=== PATIENT | female | born 1955 | race Caucasian/White ===

== ENCOUNTER 2023-11-20 22:55 | Emergency (ER) | payer MEDICARE, OTHER, SELFPAY ==
[2023-11-20 23:01] VITALS: BP 118/70
[2023-11-21 00:10] VITALS: BP 125/72
[2023-11-21] MEDS: DECADRON 10 MG IV (00:15)
[2023-11-21] MEDS: VAPONEFRIN NEBS 0.5 ML INH (00:15)
[2023-11-21] MEDS: NSS 1000 IV (00:16)
--- NOTE | 2023-11-21 00:21 | ED.GENMED ---
History of Present Illness
General
Chief Complaint: Throat Problem
Source: patient and family
Exam Limitations: none
Time Seen by Provider: 11/20/23 23:25
Nursing documentation reviewed up to this point in time: agreed with
Travel History
Have you had any contact with someone who has COVID-19?: No
Do you have any symptoms of coronavirus? Fever > 100 degrees, chills, cough, shortness of breath, sore throat, loss of taste or smell, muscle aches, or headache?: No
History of Present Illness
History of Present Illness:
68-year-old female presents with hoarseness, laryngitis type symptoms swollen glands left ear pain symptoms started a day or so ago possibly after choking on a small M&M, no fevers, mild coughing, no sick contacts, has history of MS, does not recall
ever getting any sort of symptoms with MS, she accompanied by her spouse, no fever or chills, no chest pains
Past History
Past History
ED Past Medical History: HTN and Other (Multiple sclerosis, chronic back pain and right sciatica)
ED Past Surgical History: Bowel resection (Sigmoidectomy), Gynecological (hysterectomy), Orthopedic (left shoulder surgery, foot surgery) and Other (Parathyroid removal)
Social History
Tobacco: Non-smoker
Alcohol: None
Drug: None
Personal:
Living: with family
Employment: Employed
Family History
Family History: Other (Noncontributory)
Review of Systems
Review of Systems
All Other Systems: Not applicable
Constitutional: Denies fever or fatigue
EENT: Reports other (Sore throat hoarseness earache swollen glands)
Respiratory: Reports cough; Denies trouble breathing
Cardiac: Reports no symptoms
ABD/GI: Reports no symptoms
: Reports no symptoms
Musculoskeletal: Reports no symptoms
Skin: Reports no symptoms
Neurological: Reports no symptoms
Endocrine: Reports no symptoms
Hematologic/Lymphatic: Reports no symptoms
Phy Exam
Physical Exam
Physical Exam:
Physical Exam
General: 68-year-old female hoarse voice
Neck: Posterior pharynx is red no drooling no exudates no trismus, fluid behind the left ear
Heart: s1/s2 regular rate and rhythm, no murmur. equal radial pulses.
Lungs: no acute respiratory distress. Upper airway sounds transmitted
Neuro: alert and oriented. no focal neurological deficits
Skin: no rash
Psychiatric: well kept. interactive and cooperative
Extremities: no edema.
Course
Orders/Labs/Results
Orders:
Orders
11/20/23 23:49
0.9% Sodium Chloride 1000 ml [Nss] 1,000 ml IV BOLUS
Dexamethasone Sod Phosphate [Decadron] 10 mg IV NOW STA
Racepinephrine [Vaponefrin Nebs] 0.5 ml INH R NOW STA
11/21/23 00:01
CR Soft Tissue Neck Urgent
Reason For Exam: swallowed MnM
11/21/23 01:26
Amoxicillin [Amoxil] 500 mg PO NOW STA
Vital Signs
Initial and Last Documented VS:
Initial Vital Signs
Temp Pulse Resp BP Pulse Ox
98.9 F 78 18 118/70 94
11/20/23 23:01 11/20/23 23:01 11/20/23 23:01 11/20/23 23:01 11/20/23 23:01
Last Documented Vital Signs
Temp Pulse Resp BP Pulse Ox
98.9 F 78 18 118/70 94
11/20/23 23:01 11/20/23 23:01 11/20/23 23:01 11/20/23 23:01 11/20/23 23:01
MDM/Problems Addressed
Differential Diagnosis Includes:
Laryngitis otitis media pharyngitis viral syndrome
MDM/Problems Addressed:
Hoarseness, earache
Chronic conditions affecting care:
MS
Acute Exacerbation and/or Progression of Chronic Illness:
MS
*Critical Care Note
Total Time (30-74mins, 75-104mins- exclusive of procedures): Not Applicable
Update Note
Update Note:
Update will treat with fluids steroids racemic check soft tissue neck, consideration for antibiotics though may all be viral
1:27 AM patient feeling better will discharge with Medrol and Amoxil
ED Attending Note
-
Portions of this chart may have been created with voice recognition software.� Occasional wrong word or��sound alike� substitutions may have occurred due to the inherent limitations of voice recognition software.
Discharge Plan
Departure
Patient Disposition: Home (Routine Discharge)
Date of Disposition: 11/21/23
Time of Disposition: 01:27
Patient with high blood pressure during this ER visit?: No
Condition: Good
Covid-19: Not Applicable
Discharge Problem:
Laryngitis, Otitis media
Instructions: Ear Infection ED, Laryngitis ED
Prescriptions:
New
amoxicillin 500 mg capsule
500 mg PO Q8H Qty: 30 0RF
methylprednisolone [Medrol (Ezekiel)] 4 mg tablets,dose pack
See Rx Instructions .ROUTE .COMPLEX Qty: 21 0RF
Rx Instructions:
orally per package directions
No Action
diazepam 5 MG tablet
5 mg PO BIDPRN PRN (Reason: muscle pain)
Rx Instructions:
06/28/2023, patient filled this medication on 05/30/2023 for 60 tablets according to PDMP.
amlodipine 5 MG tablet
5 mg PO DAILY Qty: 0 0RF
oxycodone-acetaminophen 10-325 mg Tablet
1 tab PO Q4H PRN (Reason: mild pain)
Rx Instructions:
06/28/2023, patient filled this medication on 06/17/2023 for 120 tablets according to PDMP.
omeprazole 20 mg Capsule,Delayed Release(Dr/Ec)
20 mg PO DAILY
paroxetine HCl 40 mg Tablet
40 mg PO HS
melatonin 5 mg Tablet,Chewable
10 mg PO HS
Vulmerity
2 cap PO BID
Rx Instructions:
06/28/2023, patient states that they take two [address] capsules BID, reconciled with patient and ECW. ECW shows that they take 412 mg. No pharmacy records indicating they fill this medication.
morphine 30 MG tablet extended release
30 mg PO BID
Rx Instructions:
06/28/2023, patient filled this medication on 06/17/2023 for 90 tablets according to PDMP.
ascorbic acid (vitamin C) 500 mg Tablet
2,000 mg PO HS
biotin 1,000 mcg Tablet,Chewable
2,000 mcg PO DAILY
Referrals:
Seb Alvarenga MD [Family Provider] -
Interventions
Interventions:
*Risk Screen - Suicide Last Done: 11/20/23 23:01
*General Assessment Last Done: 11/20/23 23:33
*Neglect/Abuse Screening Last Done: 11/20/23 23:01
ED- Cardiac Assessment Last Done: 11/20/23 23:33
ED-EENT Assessment Last Done: 11/20/23 23:33
ED- Pulmonary Assessment Last Done: 11/20/23 23:33
[2023-11-21] MEDS: AMOXIL 500 MG PO (02:06)
[2023-11-21 02:11] VITALS: BP 128/72
== END 2023-11-21 02:13 | disposition home or self-care (01) ==
LOC: EMR 22:55
PROVIDERS: EMERGENCY PHYSICIAN Emergency Medicine; FAMILY PHYSICIAN Family Medicine
DX: H66.90 Otitis media, unspecified, unspecified ear (principal); J04.0 Acute laryngitis; R49.0 Dysphonia; I10 Essential (primary) hypertension; G35 Multiple sclerosis; G89.29 Other chronic pain; Z90.49 Acquired absence of other specified parts of digestive tract; Z90.710 Acquired absence of both cervix and uterus
CPT/HCPCS: 99283; 94640; 96374; 96361; 70360

== ENCOUNTER → 2023-12-26 13:30 | Outpatient (REF) | payer MEDICARE, OTHER, SELFPAY | LOC: MRI 3T 13:30 | PROVIDERS: ATTENDING PHYSICIAN Specialist; FAMILY PHYSICIAN Family Medicine; REFERRING PHYSICIAN Pain Medicine Interventional Pain Medicine | DX: G35 Multiple sclerosis (principal) | CPT/HCPCS: 70553; 72156; A9575 ==

== ENCOUNTER → 2023-12-30 12:53 | Outpatient (REF) | payer MEDICARE, OTHER, SELFPAY | LOC: RAD 12:53 | PROVIDERS: ATTENDING PHYSICIAN Nurse Practitioner Family; FAMILY PHYSICIAN Family Medicine | DX: R05.8 Other specified cough (principal) | CPT/HCPCS: 71046 ==

== ENCOUNTER → 2024-01-05 08:19 | Outpatient (REF) | payer MEDICARE, OTHER, SELFPAY ==
[2024-01-05 08:57] LABS: % Basophils 0.4 % (0-2); % Eosinophils 5.2 % (0-6); % Immature Granulocytes 0.4 % (0-0.5); % Lymphocytes 26.4 % (20.5-51.1); % Monocytes 12.4 % (1.7-9.3); % Neutrophils 55.2 % (42.2-75.2); Absolute Eosinophils 0.3 10^3/uL (0-0.7); Absolute Lymphocytes 1.5 10^3/uL (1.2-3.4); Absolute Monocytes 0.7 10^3/uL (0.1-0.6); Absolute Neutrophils 3.1 10^3/uL (1.4-6.5); Hematocrit 36.1 % (37.0-47.0); Hemoglobin 12.2 g/dL (12.0-16.0); Mean Corp Hgb Conc. 33.8 g/dL (33.0-37.0); Mean Corpuscular Hgb 28.4 pg (27.0-31.0); Mean Corpuscular Volume 84.1 fL (81.0-99.0); Mean Platelet Volume 10.8 fL (7.4-10.4); Nucleated Red Blood Cells % 0 %; Platelet Count 252 10^3/uL (130-400); Red Blood Cell Count 4.29 10^6/uL (4.20-5.40); Red Cell Dist. Width 13.4 % (11.5-14.5); White Blood Cell Count 5.6 10^3/uL (4.8-10.8)
[2024-01-05 09:36] LABS: ALT (SGPT) 30 U/L (0-35); AST (SGOT) 44 U/L (14-36); Alkaline Phosphatase 72 U/L (38-126); Blood Urea Nitrogen 12 mg/dl (7-17); Calcium 10.1 mg/dl (8.4-10.2); Carbon Dioxide 29 mmol/L (22-30); Chloride 104 mmol/L (98-107); Glucose 89 mg/dl (70-99); HDL Cholesterol 92 mg/dl; LDL Cholesterol, Calculated 107 mg/dl; Potassium 4.4 mmol/L (3.5-5.1); Sodium 137 mmol/L (135-145); Total Bilirubin 0.7 mg/dl (0.2-1.3); Total Cholesterol 206 mg/dl (50-199); Total Protein 6.6 g/dl (6.3-8.2); Triglyceride 38 mg/dl (10-149); Very Low Density Lipoprotein 7 mg/dl (0-30); eGFR > 60.00
[2024-01-05 10:22] LABS: TSH 3.12 uIU/ml (0.47-4.68)
[2024-01-05 11:52] LABS: Glycohemoglobin (HgbA1c) 5.8 % (4.0-5.6)
== END ==
LOC: REG 08:19
PROVIDERS: ATTENDING PHYSICIAN Family Medicine
DX: G35 Multiple sclerosis (principal); E78.2 Mixed hyperlipidemia; M81.0 Age-related osteoporosis without current pathological fracture; R73.9 Hyperglycemia, unspecified
CPT/HCPCS: 36415; 80053; 80061; 83036; 84443; 85025

== ENCOUNTER → 2024-02-10 13:54 | Outpatient (REF) | payer MEDICARE, OTHER, SELFPAY | LOC: WDC 13:54 | PROVIDERS: ATTENDING PHYSICIAN Family Medicine | DX: Z12.31 Encounter for screening mammogram for malignant neoplasm of breast (principal); R22.2 Localized swelling, mass and lump, trunk; M54.2 Cervicalgia | CPT/HCPCS: 71250; 72125; 77063; 77067 ==

== ENCOUNTER 2024-04-10 03:59 | Emergency (ER) | payer MEDICARE, OTHER, SELFPAY ==
[2024-04-10 04:04] VITALS: BP 143/79
[2024-04-10 04:06] VITALS: BP 143/79; BMI 26.6
[2024-04-10 04:42] LABS: % Basophils 0.4 % (0-2); % Immature Granulocytes 0.3 % (0-0.5); % Lymphocytes 11.5 % (20.5-51.1); % Monocytes 1.6 % (1.7-9.3); % Neutrophils 86.2 % (42.2-75.2); Absolute Lymphocytes 0.8 10^3/uL (1.2-3.4); Absolute Monocytes 0.1 10^3/uL (0.1-0.6); Absolute Neutrophils 6.1 10^3/uL (1.4-6.5); Hematocrit 44.5 % (37.0-47.0); Hemoglobin 15.1 g/dL (12.0-16.0); Mean Corp Hgb Conc. 33.9 g/dL (33.0-37.0); Mean Corpuscular Hgb 27.6 pg (27.0-31.0); Mean Corpuscular Volume 81.2 fL (81.0-99.0); Mean Platelet Volume 11.3 fL (7.4-10.4); Nucleated Red Blood Cells % 0 %; Platelet Count 371 10^3/uL (130-400); Red Blood Cell Count 5.48 10^6/uL (4.20-5.40); Red Cell Dist. Width 14.5 % (11.5-14.5)
[2024-04-10] MEDS: ZOFRAN 4 MG IV (04:57)
[2024-04-10] MEDS: NSS 1000 IV (04:57)
[2024-04-10 05:03] VITALS: BP 177/82
--- NOTE | 2024-04-10 05:05 | ED.GENMED ---
History of Present Illness
<JOCELYNN Sarabia - Last Filed: 04/10/24 05:27>
General
Chief Complaint: Abdominal Symptoms
Time Seen by Provider: 04/10/24 04:51
Travel History
Have you had any contact with someone who has COVID-19?: No
Do you have any symptoms of coronavirus? Fever > 100 degrees, chills, cough, shortness of breath, sore throat, loss of taste or smell, muscle aches, or headache?: No
History of Present Illness
History of Present Illness:
68 year old female with hx of MS, chronic pain on narcotics, and indigestion who presents with multiple episodes of vomiting since 1800 yesterday. Pt states she has been feeling 'queasy' for several days. This past Tuesday pt went to [facility]
with family and was out in the sun all day and ate foods with gluten which she normally does not eat due indigestion. Yesterday, pt went to a family member's graduation and was also out in the sun. She states she has been more active than usual
these past 2 days and feels like she overdid herself. At 1800 yesterday she began vomiting and continue every 20 minutes until arrival. States she has had chronic mild lower abdominal discomfort after her abdominal surgery last year, which worsened
yesterday. Reports SOB and chest pain secondary to retching. Currently she also reports whole body pain. States she vomited up her MS medications including her pain medications. Denies fevers/chills, diarrhea, constipation.
Past History
<JOCELYNN Sarabia - Last Filed: 04/10/24 05:27>
Past History
ED Past Medical History: HTN and Other (Multiple sclerosis, chronic back pain and right sciatica)
ED Past Surgical History: Bowel resection (Sigmoidectomy), Gynecological (hysterectomy), Orthopedic (left shoulder surgery, foot surgery) and Other (Parathyroid removal)
Social History
Tobacco: Non-smoker
Alcohol: None
Drug: None
Personal:
Living: with family
Employment: Employed
Family History
Family History: Other (Noncontributory)
Review of Systems
<JOCELYNN Sarabia - Last Filed: 04/10/24 05:27>
Review of Systems
Allergies reviewed?: Yes
All Other Systems: ROS reviewed and negative except as documented in HPI and ROS
Constitutional: Reports fatigue
EENT: Reports no symptoms
Respiratory: Reports trouble breathing
Cardiac: Reports chest pain
ABD/GI: Reports abdominal pain, nausea and vomiting
: Reports no symptoms
Musculoskeletal: Reports joint pain and muscle pain
Skin: Reports no symptoms
Neurological: Reports no symptoms
Endocrine: Reports no symptoms
Hematologic/Lymphatic: Reports no symptoms
Psychiatric: Reports no symptoms
Phy Exam
<JOCELYNN Sarabia - Last Filed: 04/10/24 05:27>
General Physical Exam
General Presentation: moderate distress
General age: appears stated age
General Skin: warm and dry
General Habitus: normal
General Mental: alert
General Hydration: dry mucous membranes
Cardiovascular Exam
Cardiovascular Exam: regular rate/rhythm, no edema, no gallop, no murmur and normal peripheral pulses
Pulmonary Exam
Pulmonary Exam: lungs clear, no respiratory distress, no rales, no crackles, no rhonchi, no wheezing and no cough
Gastrointestinal Exam
Gastrointestinal Exam: normal bowel sounds, soft, no pulsatile mass and non distended
Palpation: left lower quadrant: Moderate tenderness and right lower quadrant: Moderate tenderness
Skin Exam
Skin Exam: normal color and warm/dry
Psychiatric Exam
Psychiatric Exam: normal mood/affect
Course
<JOCELYNN Sarabia - [facility] Filed: 04/10/24 05:27>
Orders/Labs/Results
Orders:
Orders
04/10/24 04:04
Electrocardiogram (*1) Urgent
Reason for Study: Fatigue / Weakness
04/10/24 04:05
EKG- Treatment ONCE
04/10/24 04:24
IV Insert/Care/Rem.- Treatment PRN
Straight cath- Treatment ONCE
04/10/24 04:32
Complete Blood Count/With Diff Urgent
Comprehensive Metabolic Panel Urgent
Lipase Urgent
04/10/24 04:44
0.9% Sodium Chloride 1000 ml [Nss] 1,000 ml IV BOLUS
Ondansetron Injectable [Zofran] 4 mg IV NOW STA
04/10/24 05:23
HYDROmorphone [Dilaudid] 1 mg IV NOW STA
04/10/24 05:31
CT Abd/pelvis W Iv Cont Urgent
Comment:
Reason For Exam: gen lower abd pain, N/V
04/10/24 05:47
Urinalysis Reflex To Culture Urgent
Date Specimen was Collected: 04/10/24
Time Specimen was Collected: 04:24
Urine Microscopic Reflex Cult Urgent
04/10/24 06:44
Oxycodone [Roxicodone] 10 mg PO NOW STA
Abnormal Lab Results
04/10/24 04/10/24
04:32 05:47
RBC 5.48 H 10^6/uL
(4.20-5.40)
MPV 11.3 H fL
(7.4-10.4)
Absolute Lymphs (auto) 0.8 L 10^3/uL
(1.2-3.4)
Neutrophils % 86.2 H %
(42.2-75.2)
Lymphocytes % 11.5 L %
(20.5-51.1)
Monocytes % 1.6 L %
(1.7-9.3)
Glucose 144 H mg/dl
(70-99)
Calcium 10.5 H mg/dl
(8.4-10.2)
AST 38 H U/L
(14-36)
Total Protein 8.4 H g/dl
(6.3-8.2)
Albumin 5.2 H g/dl
(3.5-5.0)
Urine Ketones 3+ A
(Negative)
Ur Occult Blood Reflex 1+ A
(Negative)
Urine Bilirubin 1+ A
(Negative)
Leukocyte Esterase Rfl Trace A
(Negative)
Urine Albumin (Reflex) 1+ A
(Neg - Trace)
04/10/24 04:32
04/10/24 04:32
Vital Signs
Initial and Last Documented VS:
Initial Vital Signs
BP
143/79
04/10/24 04:04
Last Documented Vital Signs
Temp Pulse Resp BP Pulse Ox
99.0 F 82 24 155/80 96
04/10/24 04:06 04/10/24 06:30 04/10/24 06:15 04/10/24 06:00 04/10/24 06:30
<Yuki Mchugh, DO - Last Filed: 04/10/24 06:52>
Orders/Labs/Results
Orders:
Orders
04/10/24 04:04
Electrocardiogram (*1) Urgent
Reason for Study: Fatigue / Weakness
04/10/24 04:05
EKG- Treatment ONCE
04/10/24 04:24
IV Insert/Care/Rem.- Treatment PRN
Straight cath- Treatment ONCE
04/10/24 04:32
Complete Blood Count/With Diff Urgent
Comprehensive Metabolic Panel Urgent
Lipase Urgent
04/10/24 04:44
0.9% Sodium Chloride 1000 ml [Nss] 1,000 ml IV BOLUS
Ondansetron Injectable [Zofran] 4 mg IV NOW STA
04/10/24 05:23
HYDROmorphone [Dilaudid] 1 mg IV NOW STA
04/10/24 05:31
CT Abd/pelvis W Iv Cont Urgent
Comment:
Reason For Exam: gen lower abd pain, N/V
04/10/24 05:47
Urinalysis Reflex To Culture Urgent
Date Specimen was Collected: 04/10/24
Time Specimen was Collected: 04:24
Urine Microscopic Reflex Cult Urgent
04/10/24 06:44
Oxycodone [Roxicodone] 10 mg PO NOW STA
Abnormal Lab Results
04/10/24 04/10/24
04:32 05:47
RBC 5.48 H 10^6/uL
(4.20-5.40)
MPV 11.3 H fL
(7.4-10.4)
Absolute Lymphs (auto) 0.8 L 10^3/uL
(1.2-3.4)
Neutrophils % 86.2 H %
(42.2-75.2)
Lymphocytes % 11.5 L %
(20.5-51.1)
Monocytes % 1.6 L %
(1.7-9.3)
Glucose 144 H mg/dl
(70-99)
Calcium 10.5 H mg/dl
(8.4-10.2)
AST 38 H U/L
(14-36)
Total Protein 8.4 H g/dl
(6.3-8.2)
Albumin 5.2 H g/dl
(3.5-5.0)
Urine Ketones 3+ A
(Negative)
Ur Occult Blood Reflex 1+ A
(Negative)
Urine Bilirubin 1+ A
(Negative)
Leukocyte Esterase Rfl Trace A
(Negative)
Urine Albumin (Reflex) 1+ A
(Neg - Trace)
04/10/24 04:32
04/10/24 04:32
Vital Signs
Initial and Last Documented VS:
Initial Vital Signs
BP
143/79
04/10/24 04:04
Last Documented Vital Signs
Temp Pulse Resp BP Pulse Ox
99.0 F 82 24 155/80 96
04/10/24 04:06 04/10/24 06:30 04/10/24 06:15 04/10/24 06:00 04/10/24 06:30
<JOCELYNN Sarabia - Last Filed: 04/10/24 05:27>
MDM/Problems Addressed
Differential Diagnosis Includes:
cyclic vomiting secondary to MS flare up, SBO, foodborne illness
MDM/Problems Addressed:
68 year old female who presents with nausea and multiple episodes of vomiting since 1800 yesterday.
Chronic conditions affecting care: HTN, Previous abdomnial surgery, Psychiatric illness (anxiety) and Other (multiple sclerosis)
<JOCELYNN Sarabia - Last Filed: 04/10/24 05:27>
*Critical Care Note
Total Time (30-74mins, 75-104mins- exclusive of procedures): Not Applicable
<Yuki Mchugh DO - Last Filed: 04/10/24 06:52>
*Radiology
Radiology exam reviewed: radiology read reviewed
*Pulse Oximetry
Patient hypoxic: no
*EKG
Interpreted by ED Provider?: Yes
Interpretation: normal
Comparison EKG: no changes (Unchanged from previous May 2023)
Rate: normal
Rhythm: sinus
Henderson: normal axis
Interval: normal interval
QRS Pattern: normal QRS
Ischemia: no ischemia
*Manager Emergency Interpretation
Rate: normal
Interpretation: normal
Rhythm: sinus
ED Attending Note
<JOCELYNN Sarabia - Last Filed: 04/10/24 05:27>
-
Portions of this chart may have been created with voice recognition software.� Occasional wrong word or��sound alike� substitutions may have occurred due to the inherent limitations of voice recognition software.
<Yuki Mchugh DO - Last Filed: 04/10/24 06:52>
ED Attending Note
Patient seen and examined by attending physician: Yes
I performed the substantive portion of visit, reviewed & personally made and approve the management plan that is documented in note by myself or LUIS.: Yes
I performed a history and physical exam of patient and discussed management with resident, I reviewed resident's note and agree with documented findings and plan of care.: Yes
ED Attending Note:
This is a 68-year-old woman who has history of MS as well as history of cervical and thoracic DJD, chronic back pain, chronically narcotic dependent.
She admits to moderate physical activity over the past several days visiting [facility] over the weekend as well as attending a graduation yesterday. She also admits to moderate dietary indiscretion over the past several days.
She presents with complaints of nausea and vomiting that began yesterday evening around 6 PM with recurrent episodes of nonbloody vomitus and has been unable to to take her oral narcotic pain medications which include MS Contin 30 mg 3 times daily
and Oxy IR 10 mg 4 times daily.
She does admit to somewhat chronic lower abdominal discomfort that is persistent per sepsis mildly increased since yesterday evening. She denies diarrhea nor constipation. No dysuria nor urgency nor hematuria. She denies back pain or flank pain.
She denies fever but has had some intermittent chills.
No known close contacts with similar symptoms. No recent antibiotics nor recent travel.
She does have history of previous abdominal surgeries including sigmoidectomy 2009, hysterectomy 1998 and she underwent abdominal wall hernia repair January 2023.
Previous hospitalization 2020 for abdominal hernia with obstruction.
GENERAL: 68-year-old woman appears her stated age, awake and alert, overall appears in no acute distress. is accompanying.
EYE: anicteric
NECK: Supple, nontender, no meningismus, no significant adenopathy.
ENT: oral mucosa is moist. No rhinorrhea.
CARDIAC: Regular rate and rhythm. no murmur.
LUNGS: Clear breath sounds bilaterally, no acute respiratory distress, no wheezes/rales/rhonchi
ABDOMEN: Soft, nondistended, without appreciable tenderness, no palpable masses, no r/g, no cvat. normoactive BS.
NEUROLOGICAL: Alert and oriented x3, no focal neuro deficits.
SKIN: Warm and dry, normal color, skin intact. No rash.
MUSCULOSKELETAL: No C/C/E. peripheral pulses are full and equal b/l. No palpable tenderness.
PSYCH: Normal and appropriate interaction.
Concern for acute gastroenteritis, distal small bowel obstruction, ileus. This patient reports inability to tolerate her oral narcotic pain medication there is some concern for mild opioid withdrawal syndrome exacerbating nausea and vomiting.
She is afebrile, hemodynamically stable and clinically appears euvolemic. There is some concern for electrolyte abnormality, acute kidney injury/dehydration related to vomiting.
Labs are pending.
Will medicate for pain and nausea initiate IV fluids.
Due to multiple previous abdominal surgeries, intractable vomiting we will plan for CT abdomen pelvis.
04/10/2024 0644 AM
Patient continues to be comfortable. She has had no episodes of vomiting since arrival to the ED.
Abdomen is soft without appreciable tenderness.
Tolerating ice chips.
Labs are unremarkable, reassuring.
CAT scan shows constipation without bowel obstruction. Gastric wall thickening suggestive of gastritis. Patient admits to some chronic abdominal issues, chronically maintained on omeprazole and has been following with GI. She continues with some
generalized aches, pains which I suspect is her chronic pain issues and will give an oral dose of oxycodone, her usual dose and if tolerated we will plan for discharge to home with recommendations to limit her diet to clear liquids today, slowly
advance to soft bland foods as tolerated.
Will prescribe Zofran ODT for as needed nausea.
Recommend she continue her usual pain medications as prescribed.
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
Discharge Plan
Departure
Patient Disposition: Home (Routine Discharge)
Date of Disposition: 04/10/24
Time of Disposition: 06:47
Patient with high blood pressure during this ER visit?: No
Condition: Good
Discharge Problem:
Acute gastroenteritis
Instructions: Clear Liquid Diet
Prescriptions:
New
ondansetron 4 mg tablet,disintegrating
4 mg PO QID PRN (Reason: nausea and vomiting) Qty: 20 0RF
No Action
diazepam 5 MG tablet
5 mg PO BIDPRN PRN (Reason: muscle pain)
Rx Instructions:
06/28/2023, patient filled this medication on 05/30/2023 for 60 tablets according to PDMP.
amlodipine 5 MG tablet
5 mg PO DAILY Qty: 0 0RF
omeprazole 20 mg Capsule,Delayed Release(Dr/Ec)
40 mg PO DAILY
paroxetine HCl 40 mg Tablet
40 mg PO HS
melatonin 5 mg Tablet,Chewable
10 mg PO HS
Vulmerity
2 cap PO BID
Rx Instructions:
06/28/2023, patient states that they take two [address] capsules BID, reconciled with patient and ECW. ECW shows that they take 412 mg. No pharmacy records indicating they fill this medication.
morphine 30 MG tablet extended release
30 mg PO TID
Rx Instructions:
06/28/2023, patient filled this medication on 06/17/2023 for 90 tablets according to PDMP.
Referrals:
Seb Alvarenga MD [Family Provider] - Call in 1-3 days for appt
Activity Restrictions/Additional Instructions:
Limit your diet to clear liquids today, slowly advancing to soft bland foods tomorrow.
A prescription for orally dissolving Zofran has been sent to your pharmacy for as needed nausea.
Continue your current medications as prescribed.
Follow-up with your primary care physician as well as passenger barge master for recheck.
Interventions
Interventions:
*Risk Screen - Suicide Last Done: 04/10/24 04:22
*General Assessment Last Done: 04/10/24 04:06
*Neglect/Abuse Screening Last Done: 04/10/24 04:06
*ED COVID-19 Vaccine History Last Done: 04/10/24 04:22
GE-Vqiqyg-Nyunizplrh Assessment Last Done: 04/10/24 04:23
Discharge Date and Time
Print Language: YI
[2024-04-10 05:07] LABS: ALT (SGPT) 31 U/L (0-35); AST (SGOT) 38 U/L (14-36); Albumin 5.2 g/dl (3.5-5.0); Alkaline Phosphatase 95 U/L (38-126); Blood Urea Nitrogen 13 mg/dl (7-17); Calcium 10.5 mg/dl (8.4-10.2); Carbon Dioxide 28 mmol/L (22-30); Chloride 104 mmol/L (98-107); Estimated Creatinine Clearance 72 ml/min; Glucose 144 mg/dl (70-99); Lipase 64 U/L (23-300); Potassium 4.5 mmol/L (3.5-5.1); Sodium 144 mmol/L (135-145); Total Protein 8.4 g/dl (6.3-8.2); eGFR > 60.00
[2024-04-10] MEDS: DILAUDID 1 MG IV (05:31)
[2024-04-10 06:00] VITALS: BP 155/80
[2024-04-10 06:29] LABS: Urine Albumin 1+ (Neg - Trace); Urine Bilirubin 1+ (Negative); Urine Glucose Negative (Negative); Urine Ketone 3+ (Negative); Urine Leukocyte Trace (Negative); Urine Nitrite Negative (Negative); Urine Occult Blood 1+ (Negative); Urine Urobilinogen 1+ (Neg - 1+)
[2024-04-10 06:30] LABS: Urine Character Slightly Cloudy (Clear); Urine Color Amber
[2024-04-10] MEDS: ROXICODONE 10 MG PO (06:53)
[2024-04-10 07:32] LABS: Urine Squamous Cell 0-2 /LPF (Few)
[2024-04-10 07:33] LABS: Urine Bacteria Few (Negative); Urine Red Blood Cell 0-2 /HPF (0-2)
== END 2024-04-10 08:00 | disposition home or self-care (01) ==
LOC: EMR 03:59
PROVIDERS: EMERGENCY PHYSICIAN Emergency Medicine; FAMILY PHYSICIAN Family Medicine
DX: R10.30 Lower abdominal pain, unspecified (principal); R06.02 Shortness of breath; R07.89 Other chest pain; K52.9 Noninfective gastroenteritis and colitis, unspecified; K59.00 Constipation, unspecified; G35 Multiple sclerosis; I10 Essential (primary) hypertension; F41.9 Anxiety disorder, unspecified; G89.29 Other chronic pain; M54.31 Sciatica, right side; M47.814 Spondylosis without myelopathy or radiculopathy, thoracic region; M47.812 Spondylosis without myelopathy or radiculopathy, cervical region; Z79.891 Long term (current) use of opiate analgesic; Z98.0 Intestinal bypass and anastomosis status
CPT/HCPCS: 99285; 96375; 96361 ×2; 96374; 74177; 80053; 81003; 81015; 83690; 85025; 93005; Q9967

== ENCOUNTER → 2024-04-19 13:34 | Outpatient (REF) | payer MEDICARE, OTHER, SELFPAY | LOC: RCS 13:34 | PROVIDERS: ATTENDING PHYSICIAN Internal Medicine Cardiovascular Disease; FAMILY PHYSICIAN Family Medicine | DX: R07.9 Chest pain, unspecified (principal); I10 Essential (primary) hypertension | CPT/HCPCS: 93306 ==

== ENCOUNTER → 2024-05-04 11:56 | Outpatient (REF) | payer MEDICARE, OTHER, SELFPAY | LOC: PAVMRI 11:56 | PROVIDERS: ATTENDING PHYSICIAN Orthopaedic Surgery Orthopaedic Surgery of the Spine; FAMILY PHYSICIAN Family Medicine | DX: M48.062 Spinal stenosis, lumbar region with neurogenic claudication (principal) | CPT/HCPCS: 72148 ==

== ENCOUNTER 2024-05-09 06:08 | Inpatient (IN) | payer MEDICARE, OTHER, SELFPAY ==
--- NOTE | 2024-04-11 10:53 | CM ---
Patient is scheduled for cervical spine surgery on 05/09/24. Spoke with patient prior to surgery via telephone. Introduced role of the Orthopedic Navigator. Patient reports that she lives with her in a multi story home. There are three steps
to enter and a flight of steps to the second floor. She currently functions independently. She has a cane. She has never had VN services. PCP is Seb Alvarenga.
Discussed orthopedic program, post surgical plans and tentative plan for patient to return home when directed by surgeon. Patient is in agreement with tentative plan and will have support from her when she goes home.
Plan: Orthopedic Navigator will remain available to assist with the care of patient and will reassess discharge needs after surgery.
[2024-05-01 12:56] VITALS: BMI 26.1
[2024-05-01 14:30] LABS: Hematocrit 38.7 % (37.0-47.0); Hemoglobin 12.9 g/dL (12.0-16.0); Mean Corp Hgb Conc. 33.3 g/dL (33.0-37.0); Mean Corpuscular Hgb 27.5 pg (27.0-31.0); Mean Corpuscular Volume 82.5 fL (81.0-99.0); Mean Platelet Volume 11.1 fL (7.4-10.4); Platelet Count 344 10^3/uL (130-400); Red Blood Cell Count 4.69 10^6/uL (4.20-5.40); White Blood Cell Count 6.6 10^3/uL (4.8-10.8)
[2024-05-01 15:15] LABS: ALT (SGPT) 46 U/L (0-35); AST (SGOT) 45 U/L (14-36); Albumin 4.7 g/dl (3.5-5.0); Alkaline Phosphatase 77 U/L (38-126); Blood Urea Nitrogen 13 mg/dl (7-17); Calcium 9.9 mg/dl (8.4-10.2); Carbon Dioxide 26 mmol/L (22-30); Chloride 104 mmol/L (98-107); Estimated Creatinine Clearance 74 ml/min; Glucose 121 mg/dl (70-99); Potassium 4.8 mmol/L (3.5-5.1); Sodium 140 mmol/L (135-145); Total Bilirubin 0.7 mg/dl (0.2-1.3); Total Protein 7.6 g/dl (6.3-8.2); eGFR > 60.00
[2024-05-09] VITALS (23 sets, daily range): BP systolic 117–147; BP diastolic 59–84; PULSE 97; O2SAT 93; BMI 26.1
[2024-05-09] MEDS: LYRICA 150 MG PO (06:35)
[2024-05-09] MEDS: SKELAXIN 800 MG PO ×3 (06:36→21:10)
[2024-05-09] MEDS: TYLENOL 1000 MG PO ×4 (06:36→23:22)
[2024-05-09] MEDS: CELEBREX 200 MG PO (06:36)
[2024-05-09] MEDS: NORMOSOL-R 1000 IV ×3 (06:36→20:37)
[2024-05-09] MEDS: DILAUDID 0.5 MG IV ×5 (09:30→11:19)
[2024-05-09] MEDS: MS CONTIN (EXTENDED RELEASE) 30 MG PO ×2 (14:34→20:38)
[2024-05-09] MEDS: ANCEF 5 IV ×2 (16:11→23:21)
[2024-05-09] MEDS: ROXICODONE 10 MG PO ×2 (16:11→23:23)
[2024-05-09] MEDS: LYRICA 75 MG PO (18:24)
[2024-05-09] MEDS: SENOKOT 17.2 MG PO (20:38)
[2024-05-09] MEDS: COLACE 100 MG PO (20:38)
[2024-05-09] MEDS: NON-FORMULARY ITEM 2 MG PO (21:00)
[2024-05-09] MEDS: MELATONIN 10 MG PO (21:09)
[2024-05-09] MEDS: PROTONIX 40 MG PO (21:10)
[2024-05-09] MEDS: PAXIL 40 MG PO (21:10)
[2024-05-09] MEDS: ANESTHETIC LOZENGE 1 LOZENGE PO (23:22)
[2024-05-10 03:30] VITALS: BP 142/72
[2024-05-10] MEDS: ROXICODONE 10 MG PO ×3 (03:51→13:08)
[2024-05-10] MEDS: NORMOSOL-R 1000 IV (03:53)
[2024-05-10] MEDS: LYRICA 75 MG PO (05:32)
[2024-05-10] MEDS: SKELAXIN 800 MG PO (05:33)
[2024-05-10] MEDS: TYLENOL 1000 MG PO (06:07)
[2024-05-10 06:28] LABS: Hematocrit 34.6 % (37.0-47.0); Hemoglobin 11.8 g/dL (12.0-16.0)
[2024-05-10 06:58] LABS: Blood Urea Nitrogen 6 mg/dl (7-17); Calcium 8.9 mg/dl (8.4-10.2); Carbon Dioxide 28 mmol/L (22-30); Chloride 105 mmol/L (98-107); Estimated Creatinine Clearance 74 ml/min; Glucose 98 mg/dl (70-99); Potassium 4.1 mmol/L (3.5-5.1); Sodium 139 mmol/L (135-145); eGFR > 60.00
[2024-05-10 07:54] VITALS: BP 123/68
[2024-05-10] MEDS: MS CONTIN (EXTENDED RELEASE) 30 MG PO (07:55)
[2024-05-10] MEDS: COLACE 100 MG PO (07:55)
[2024-05-10] MEDS: SENOKOT 17.2 MG PO (07:55)
[2024-05-10] MEDS: NON-FORMULARY ITEM 462 MG PO (07:55)
--- NOTE | 2024-05-10 08:02 | W.DS.TRANS ---
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
-
Discharge Instructions:
Sleep Apnea Risk Low
Instructions:
Stand-Alone Forms: Desir Cervical D/C Inst.
Changes to Home Medications: No
Discharge Medications:
DC Medications w/original date entered in [facility]
diazepam 5 mg tablet 5 mg PO BIDPRN PRN muscle pain 09/30/15
amlodipine 5 mg tablet 5 mg PO DAILY ##0 11/18/20
melatonin 5 mg chewable tablet 10 mg PO HS Sleep 06/28/23
morphine 30 mg tablet,extended release 30 mg PO TID Pain 06/28/23
omeprazole 20 mg capsule,delayed release 40 mg PO DAILY Gastrointestinal Issue 06/28/23
paroxetine HCl 40 mg tablet 40 mg PO HS Mental Health/Anxiety 06/28/23
diroximel fumarate 231 mg capsule,delayed release (Vumerity) 462 mg PO BID 05/07/24
oxycodone 10 mg tablet 10 mg PO DAILY Pain 05/07/24
tizanidine 4 mg capsule 4 mg PO BID PRN Spasms 05/09/24
Home Medication Changes
Pending Results: No
--- NOTE | 2024-05-10 08:02 | W.PN.SP ---
Today's Communication / Plan
-
s/p acdf for myelopathy
PT
D/c
Pain meds through her [facility] doctor
Subjective / Objective
Subjective Data
Neck and throat sore. NO trouble breathing
PT on chronic pain meds
Objective Data
Vital Signs
Temp Pulse Resp BP Pulse Ox
98.1 F 69 16 119/72 100
05/10/24 07:54 05/10/24 07:56 05/10/24 07:54 05/10/24 07:56 05/10/24 07:54
Intake and Output
05/09/24 05/10/24 05/11/24
06:59 06:59 06:59
Intake Total 3370 / 3370
Output Total 700 / 700
Balance 2670 / 2670
Intake:
Oral fluids 1270 / 1270
IV fluids (Total) 2100 / 2100
Normosol 400 / 400
Output:
Urine, Voided 700 / 700
Other:
Number of approximated SMALL 1
amounts of urine
Number of approximated MODERATE 6
amounts of urine
Lab Data
05/10/24 05:14
05/10/24 05:14
Physical Exam
-
No focal deficits
[2024-05-10 09:13] VITALS: BP 124/69; PULSE 73
[2024-05-10 09:24] VITALS: BP 134/76; PULSE 77; O2SAT 95
--- NOTE | 2024-05-10 09:37 | CM ---
Addendum entered by Torie Lawton 05/10/24 10:21:
Patient did well with therapy. She has no concerns about going home and has updated her .
Original Note:
Reviewed chart and held rounds with PT, OT and RN. Patient had planned cervical spine surgery with Dr. Desir on 05/09. Met with patient at bedside. Confirmed information previously obtained for assessment and discussed discharge plans. Patient
continues to plan to return home at discharge. She will have support from her when she goes home. Reviewed that she will work with PT/OT this morning and that discharge needs will depend on his functional status. However, no needs currently
identified.
Patient has a cane at home. She will need a rolling walker for home use; script obtained and given to PT.
Patient will use [facility] for discharge prescriptions.
[2024-05-10] MEDS: TYLENOL PO (12:06)
[2024-05-10] MEDS: ANESTHETIC LOZENGE 1 LOZENGE PO (12:58)
--- NOTE | 2024-05-10 13:03 | W.PN.ORTHO ---
Today's Communication / Plan
-
d/c
Assessment
.
Dressing:
Clean, dry and intact.
Assessment:
MS with diffuse weakness > left side-caution advbised re fall risk
Chronic pain-pain regimen per pain specialist
Plan
.
Surgery / Date: C4-5-[address] Desir 05/09/23
Activity:
Out of bed.
PT/OT
Discharge Plan: Home
Subjective
.
.:
Patient resting comfortably.
Vital Signs and Labs
.
Vital Signs and Labs:
Lab Results
05/10/24 05:14
05/10/24 05:14
Temp Pulse Resp BP Pulse Ox
98.1 F 69 16 119/72 100
05/10/24 07:54 05/10/24 07:56 05/10/24 07:54 05/10/24 07:56 05/10/24 07:54
Physical Exam
-
HEENT: No pallor, cyanosis, or jaundice. Throat clear.
NECK: Supple. No JVD.
RESPIRATORY: Lungs clear to auscultation.
CVS: S1, S2 normal. RRR.� No murmur, rub or gallop.
ABDOMEN: Soft, non-tender. No distension. BS+/normal.
EXTREMITIES: strength diminished RUE/RLE 4-/5, LUE/LLE 3+/5, no calf pain with palpation
MEDICAL RECEPTION SPECIALIST: AOx3. No focal deficits. 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
--- NOTE | 2024-05-10 13:10 | W.DS.TRANS ---
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
-
Discharge Instructions:
Sleep Apnea Risk Low
Discharge Diagnosis/Procedures C4-5-[address] Desir 05/09/23
Diet As tolerated
Activity With Walker
Driving Restrictions No driving
Instructions:
Stand-Alone Forms: Desir Cervical D/C Inst.
Changes to Home Medications: Yes
Discharge Medications:
DC Medications w/original date entered in [facility]
diazepam 5 mg tablet 5 mg PO BIDPRN PRN muscle pain 09/30/15
amlodipine 5 mg tablet 5 mg PO DAILY ##0 11/18/20
melatonin 5 mg chewable tablet 10 mg PO HS Sleep 06/28/23
omeprazole 20 mg capsule,delayed release 40 mg PO DAILY Gastrointestinal Issue 06/28/23
paroxetine HCl 40 mg tablet 40 mg PO HS Mental Health/Anxiety 06/28/23
diroximel fumarate 231 mg capsule,delayed release (Vumerity) 462 mg PO BID 05/07/24
tizanidine 4 mg capsule 4 mg PO BID PRN Spasms 05/09/24
Saccharomyces boulardii 250 mg capsule (Florastor) 250 mg PO BID #1 cap 05/10/24
cephalexin 500 mg capsule 500 mg PO QID infection prevention #20 caps 05/10/24
docusate sodium 100 mg capsule (Colace) 100 mg PO BID stool softner #1 cap 05/10/24
magnesium hydroxide 400 mg/5 mL oral suspension (Milk of Magnesia) 30 ml PO HS PRN Constipation #1 mL 05/10/24
morphine 30 mg tablet,extended release 30 mg PO TID Pain #0 tabs 05/10/24
oxycodone 10 mg tablet 10 mg PO QID PRN moderate-severe breakthru pain #0 tabs 05/10/24
sennosides 8.6 mg tablet (Senokot) 17.2 mg (2 x 8.6 mg) PO BID laxative #2 tabs 05/10/24
Home Medication Changes
cephalexin 500 mg capsule 500 mg PO QID infection prevention #20 caps 05/10/24
Pending Results: No
[2024-05-10 15:17] VITALS: BP 136/73
== END 2024-05-10 15:40 | disposition home or self-care (01) | DRG 472 ==
LOC: 2 SOUTH 06:08
PROVIDERS: Physician Assistant Medical; ADMITTING PHYSICIAN Orthopaedic Surgery Orthopaedic Surgery of the Spine; FAMILY PHYSICIAN Family Medicine
PROC: 00NW0ZZ Release Cervical Spinal Cord, Open Approach (ICD-10-PCS; 2024-05-09)
PROC: 0RG20A0 Fusion of 2 or more Cervical Vertebral Joints with Interbody Fusion Device, Anterior Approach, Anterior Column, Open Approach (ICD-10-PCS; 2024-05-09)
PROC: 0RB30ZZ Excision of Cervical Vertebral Disc, Open Approach (ICD-10-PCS; 2024-05-09)
DX: M48.02 Spinal stenosis, cervical region (principal); G99.2 Myelopathy in diseases classified elsewhere; G35 Multiple sclerosis; I10 Essential (primary) hypertension; M81.0 Age-related osteoporosis without current pathological fracture; M79.7 Fibromyalgia; F41.9 Anxiety disorder, unspecified; G89.4 Chronic pain syndrome; K58.9 Irritable bowel syndrome, unspecified; Z79.899 Other long term (current) drug therapy
CPT/HCPCS: 36415; 72020; 80048; 80053; 85014; 85018; 85027; 87070; 97116; 97162; 97166; 97535

== ENCOUNTER → 2025-08-20 13:39 | Outpatient (REF) | payer MEDICARE, OTHER, SELFPAY | LOC: MRI 3T 13:39 | PROVIDERS: ATTENDING PHYSICIAN Specialist; FAMILY PHYSICIAN Family Medicine | DX: M48.02 Spinal stenosis, cervical region (principal); M48.062 Spinal stenosis, lumbar region with neurogenic claudication; G35.D Multiple sclerosis, unspecified | CPT/HCPCS: 72141; 72148 ==

== ENCOUNTER → 2025-08-21 16:12 | Outpatient (REF) | payer MEDICARE, OTHER, SELFPAY | LOC: MRI 3T 16:12 | PROVIDERS: ATTENDING PHYSICIAN Specialist; FAMILY PHYSICIAN Family Medicine | DX: G35.D Multiple sclerosis, unspecified (principal) | CPT/HCPCS: 70551 ==

== ENCOUNTER → 2025-08-23 11:21 | Outpatient (REF) | payer MEDICARE, OTHER, SELFPAY | LOC: PAVMRI 11:21 | PROVIDERS: ATTENDING PHYSICIAN Specialist | DX: G35.D Multiple sclerosis, unspecified (principal) | CPT/HCPCS: 72146 ==